=== PATIENT | male | born 1985 | race Caucasian/White ===

== ENCOUNTER 2018-05-15 07:42 | Emergency (ER) | payer OTHER ==
[2018-05-15 07:48] VITALS: BP 150/92; PULSE 69; TEMP 98.1; BMI 36.3
--- NOTE | 2018-05-15 08:25 | PDOC ---
History of Present Illness - General Chief Complaint: Eye Problem Stated Complaint: LEFT EYE SWELLING Time Seen by Provider: 05/15/18 08:13 History Source: Patient Exam Limitations: Clinical Condition - History of Present Illness Initial Comments: 05/15/18 08:21 Patient with no significant past medical history present with complaint of three -day history of swelling to left upper eyelid and sore throat since yesterday. Patient denies trauma or injury to eye. Patient denies cough, nasal congestion, blurry vision or fevers. Patient denies headache. Timing/Duration: other (4 days) Past History - Past Medical History Allergies/Adverse Reactions: Allergies Allergy/AdvReac Type Severity Reaction Status Date / Time No Known Allergies Allergy Verified 05/15/18 08:20 Home Medications: Ambulatory Orders Erythromycin 0.5% Eye Ointment [Erythromycin 0.5% Eye Ointment -] 1 applic TP BID 5 Days #1 tube 05/15/18 Ofloxacin 0.3% Ophth Soln [Ocuflox -] 2 drop OP Q6H #1 bottle 05/15/18 COPD: No - Immunization History Immunization Up to Date: Yes - Suicide/Smoking/Psychosocial Hx Smoking History: Never smoked Hx Alcohol Use: No Drug/Substance Use Hx: No Review of Systems - Review of Systems Able to Perform ROS?: Yes Is the patient limited [place] proficient: No Constitutional: No: Chills, Fever HEENTM: Yes: Symptoms Reported, See HPI, Eye Pain (left upper), Nose Congestion , Throat Pain. No: Blurred Vision, Tearing, Recent change in vision, Double Vision, Cataracts, Ear Pain, Ocular Prothesis, Ear Discharge, Nose Pain, Tinnitus, Nose Bleeding, Hearing Loss, Throat Swelling, Mouth Pain, Dental Problems, Difficulty Swallowing, Mouth Swelling, Other Respiratory: No: Symptoms reported, See HPI, Cough, Orthopnea, Shortness of Breath, SOB with Exertion, SOB at Rest, Stridor, Wheezing, Productive cough, Hemoptysis, Other Cardiac (ROS): No: Symptoms Reported, See HPI, Chest Pain, Edema, Irregular Heart Rate, Lightheadedness, Palpitations, Syncope, Chest Tightness, Other ABD/GI: No: Nausea, Vomiting All Other Systems: Reviewed and Negative *Physical Exam - Vital Signs Last Vital Signs Temp Pulse Resp BP Pulse Ox 98.1 F 69 16 150/92 98 05/15/18 07:45 05/15/18 07:45 05/15/18 07:45 05/15/18 07:45 05/15/18 07:45 - Physical Exam Comments: 05/15/18 08:32 GENERAL: Well developed, well nourished. Awake and alert. No acute distress. HEENT: moderate swelling with mild erythema to left upper eyelid. other eyelids normal. mild erythema in left conjunctiva. Normocephalic, atraumatic. PERRLA, EOMI. No right conjunctival pallor. Sclera are non-icteric. Moist mucous membranes. Oropharynx is clear. NECK: Supple. Full ROM. CARDIOVASCULAR: Regular rate and rhythm. No murmurs, rubs, or gallops. Distal pulses are 2+ and symmetric. PULMONARY: No evidence of respiratory distress. Lungs clear to auscultation bilaterally. No wheezing, rales or rhonchi. ABDOMINAL: Soft. Non-tender. Non-distended. No rebound or guarding. No organomegaly. Normoactive bowel sounds. MUSCULOSKELETAL Normal range of motion at all joints. NEUROLOGICAL: Alert, awake, appropriate. Gait is normal without ataxia. PSYCHIATRIC: Cooperative. Good eye contact. Appropriate mood General Appearance: Yes: Nourished, Appropriately Dressed. No: Apparent Distress Moderate Sedation - Procedure Monitoring Vital Signs: Procedure Monitoring Vital Signs Temperature 98.1 F 05/15/18 07:45 Pulse Rate 69 05/15/18 07:45 Respiratory Rate 16 05/15/18 07:45 Blood Pressure 150/92 05/15/18 07:45 O2 Sat by Pulse Oximetry (%) 98 05/15/18 07:45 Medical Decision Making - Medical Decision Making 05/15/18 08:34 Patient with no significant past medical history present with complaint of three -day history of swelling to left eyelid and sore throat since yesterday with no other symptoms. Exam significant for moderate swelling with mild erythema to left upper eyelid and mild conjunctiva erythema in the left. Right eyelid and conjunctiva normal. Symptoms likely blepharitis of left upper eyelid. Rapid strep ordered to rule out strep pharyngitis given complaint of sore throat. Patient is stable for outpatient treatment for blepharitis with topical erythromycin antibiotics and warm compresses with ophthalmology follow-up. 05/15/18 09:24 rapid strep negative. Patient stable for discharge *DC/Admit/Observation/Transfer Diagnosis at time of Disposition: Blepharitis of eyelid of left eye Qualifiers: Blepharitis type: unspecified type Eyelid: upper Qualified Code(s): H01.004 - Unspecified blepharitis left upper eyelid Pharyngitis Qualifiers: Pharyngitis/tonsillitis etiology: unspecified etiology Qualified Code(s): J02.9 - Acute pharyngitis, unspecified - Discharge Dispostion Disposition: HOME Condition at time of disposition: Stable Decision to Admit order: No - Prescriptions Prescriptions: Erythromycin 0.5% Eye Ointment [Erythromycin 0.5% Eye Ointment -] 1 applic TP BID 5 Days #1 tube Ofloxacin 0.3% Ophth Soln [Ocuflox -] 2 drop OP Q6H #1 bottle - Referrals Referrals: Riki Andino MD [Staff Physician] - - Patient Instructions Printed Discharge Instructions: DI for Blepharitis - Post Discharge Activity
== END 2018-05-15 09:28 | disposition home or self-care (01) ==
LOC: JERFT 07:42
DX: H01.004 Unspecified blepharitis left upper eyelid (principal); J02.9 Acute pharyngitis, unspecified
CPT/HCPCS: 87070; 87880; 99281-25

== ENCOUNTER 2019-06-05 12:15 | Emergency (ER) | payer OTHER ==
[2019-06-05 12:45] VITALS: BP 130/82; PULSE 71; TEMP 98.7; BMI 35.5
[2019-06-05] MEDS ORDERED: IBUPROFEN 600 MG TABLET (FP) PO ONE ×2 (13:16→13:29)
[2019-06-05] MEDS ORDERED: DIPHTH,PERTUSS(ACELL),TET 0.5 ML DISP.SYRIN IM ONE ×2 (13:16→13:30)
--- NOTE | 2019-06-05 13:30 | PDOC ---
History of Present Illness - General Chief Complaint: Injury Stated Complaint: HEAD LAC. Time Seen by Provider: 06/05/19 12:48 History Source: Patient Exam Limitations: No Limitations - History of Present Illness Initial Comments: 06/05/19 13:25 HISTORY OF PRESENT ILLNESS: Otherwise healthy 34-year-old male presents emergency department for evaluation of laceration to the top of his head. 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 He denies any loss of consciousness, blurry vision, nausea or vomiting. Denies any discharge or drainage from his ears or nose. No recent travel or sick contacts. PAST MEDICAL HISTORY: Denies past medical history SURGICAL HISTORY: Denies ALLERGIES: No known drug allergies REVIEW OF SYSTEMS General/Constitutional: Denies fever or chills. Denies weakness, weight change. HEENT: See HPI Cardiovascular: Denies chest pain or shortness of breath. Respiratory: Denies cough, wheezing, or hemoptysis. Gastrointestinal: Denies nausea, vomiting, diarrhea or constipation. Denies rectal bleeding. Genitourinary: Denies dysuria, frequency, or change in urination. Musculoskeletal: Denies joint or muscle swelling or pain. Denies neck or back pain. Skin and breasts: Denies rash or easy bruising. Neurologic: Denies headache, vertigo, loss of consciousness, or loss of sensation. Psychiatric: Denies depression or anxiety. Endocrine: Denies increased thirst. Denies abnormal weight change. Hematologic/Lymphatic: Denies anemia, easy bleeding, or history of blood clots. Allergic/Immunologic: Denies hives or skin allergy. Denies latex allergy. PHYSICAL EXAM General Appearance: Well-appearing, appropriately dressed. No apparent distress , no intoxication. HEENT: EOMI, PERRLA, normal ENT inspection, normal voice, TMs normal, pharynx normal. No conjunctival pallor. No photophobia, scleral icterus. No hemotympanum present. No evidence of septal hematoma noted. No discharge or drainage from ears or nose. Neck: Supple. Trachea midline. No tenderness, rigidity, carotid bruit, stridor , lymphadenopathy, or thyromegaly. Integumentary: Approximate 8 cm linear superficial laceration present to the left frontal scalp approximately 1 cm in from the hairline. Bleeding is well controlled. Galea is intact. 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 Fully oriented, alert. Appropriate mood/affect. Motor strength 5/5. No appreciable EOM palsy, facial droop or sensory deficit. Past History - Past Medical History Allergies/Adverse Reactions: Allergies Allergy/AdvReac Type Severity Reaction Status Date / Time No Known Allergies Allergy Verified 05/15/18 08:20 Home Medications: Ambulatory Orders Erythromycin 0.5% Eye Ointment [Erythromycin 0.5% Eye Ointment -] 1 applic TP BID 5 Days #1 tube 05/15/18 Ofloxacin 0.3% Ophth Soln [Ocuflox -] 2 drop OP Q6H #1 bottle 05/15/18 COPD: No - Immunization History Immunization Up to Date: Yes - Psycho Social/Smoking Cessation Hx Smoking History: Never smoked Hx Alcohol Use: No Drug/Substance Use Hx: No *Physical Exam - Vital Signs Last Vital Signs Temp Pulse Resp BP Pulse Ox 98.7 F 71 19 130/82 97 06/05/19 12:41 06/05/19 12:41 06/05/19 12:41 06/05/19 12:41 06/05/19 12:41 Procedures - Consent Consent obtained: Verbal, From Patient - Laceration/Wound Repair Left Anterior Head Wound Length: 7.6 to 12.5 cm Wound Explored: clean, no foreign body present Wound's Depth, Shape: superficial, linear Irrigated w/ Saline: Yes Betadine Prep: Yes Anesthesia: 2% Lidocaine w/ Epi Amount of Anesthetic (ccs): 5 Wound Debrided: minimal Wound Repaired With: Jane Number of Sutures: 8 Layer Closure: No Sterile Dressing Applied: No Splint Applied: No Sling Applied: No Progress: 06/05/19 13:48 Patient tolerated well. Medical Decision Making - Medical Decision Making 06/05/19 13:28 A/P: 34-year-old male with laceration to his head status post head trauma Approximate 8 cm linear superficial laceration present to the left frontal scalp approximately 1 cm in from hairline. No evidence of septal hematoma No hemotympanum present No discharge or drainage from the ears or nose. Teeth are intact. No oral trauma noted Laceration repair-see procedure note for details [employer] Discharge home Discharge - Discharge Information Problems reviewed: Yes Clinical Impression/Diagnosis: Scalp laceration Qualifiers: Encounter type: initial encounter Qualified Code(s): S01.01XA - Laceration without foreign body of scalp, initial encounter Head trauma Qualifiers: Encounter type: initial encounter Qualified Code(s): S09.90XA - Unspecified injury of head, initial encounter Condition: Stable Disposition: HOME - Admission No - Follow up/Referral - Patient Discharge Instructions Additional Instructions: Rest, no exercise or gym until jane are removed May use ice packs tonight as needed for swelling and pain Put a towel over pillow/old pillowcase to avoid damage from bacitracin and bleeding to linens until jane removed Use antibiotic cream/ointment once in the morning once at night until jane are removed May use Tylenol or Motrin for pain relief Return to emergency department for worsening pain, swelling, bleeding, or evidence of serious head injury Staple removal in 5-7 days [place], sin ejercicio o gimnasio hasta que se retiren las grapas Puede usar compresas de hielo esta noche segn sea necesario para la hinchazn y el dolor Ponga sujatha toalla sobre la almohada/yumiko de almohada vieja para evitar daos causados por bacitracina y sangrado en la ropa de cama hasta que se retiren las grapas Use crema/pomada antibitica sujatha vez por la maana sujatha vez por la noche hasta que se retiren las grapas Puede usar Tylenol o Motrin para aliviar el dolor Regrese al servicio de urgencias para empeorar el dolor, la hinchazn, el sangrado o la evidencia de lesiones graves en la selena Eliminacin de grapas en 5-7 king - Post Discharge Activity Work/Back to School Note: Back to Work
== END 2019-06-05 13:52 | disposition home or self-care (01) ==
LOC: JERFT 12:15
PROC: 0HQ0XZZ Repair Scalp Skin, External Approach (ICD-10-PCS; principal; 2019-06-05)
PROC: 3E0234Z Introduction of Serum, Toxoid and Vaccine into Muscle, Percutaneous Approach (ICD-10-PCS; 2019-06-05)
DX: S01.01XA Laceration without foreign body of scalp, initial encounter (principal); S09.90XA Unspecified injury of head, initial encounter
CPT/HCPCS: 12004; 90471; 90715; 99282-25

== ENCOUNTER 2022-10-28 17:39 | Emergency (ER) | payer OTHER ==
[2022-10-28 17:55] VITALS: BP 150/97; PULSE 70; RESP 18; TEMP 98.3; BMI 37.1
[2022-10-28] MEDS ORDERED: KETOROLAC TROMETHAMINE 30 MG/1 ML VIAL IM ONE (18:25)
[2022-10-28] MEDS ORDERED: METHOCARBAMOL 500 MG TABLET PO ONE (18:26)
[2022-10-28] MEDS ORDERED: LIDOCAINE 5% TOPICAL PATCH TP ONE (18:26)
[2022-10-28] MEDS ORDERED: ACETAMINOPHEN 500 MG TABLET (FP) PO ONE (18:26)
[2022-10-28] MEDS ORDERED: KETOROLAC TROMETHAMINE 30 MG/1 ML VIAL ONE (18:35)
[2022-10-28] MEDS ORDERED: ACETAMINOPHEN 500 MG TABLET (FP) ONE (18:35)
[2022-10-28] MEDS ORDERED: LIDOCAINE 5% TOPICAL PATCH ONE (18:35)
[2022-10-28] MEDS ORDERED: METHOCARBAMOL 500 MG TABLET ONE (18:46)
[2022-10-29] MEDS ORDERED: LIDOCAINE PATCH REMOVAL MC SCH (06:30)
== END 2022-10-28 20:48 | disposition home or self-care (01) ==
LOC: JERFT 17:39
PROC: 3E0233Z Introduction of Anti-inflammatory into Muscle, Percutaneous Approach (ICD-10-PCS; principal; 2022-10-28)
DX: M79.604 Pain in right leg (principal); M54.41 Lumbago with sciatica, right side
CPT/HCPCS: 99284-25